=== PATIENT | female | born 1980 | race American Indian/Alaskan Native ===

== ENCOUNTER 2016-09-29 14:32 | Emergency (ER) | payer OTHER, MEDICAID ==
[2016-09-29] MEDS ORDERED: NORCO 5/325 PO ONE (16:08)
[2016-09-29] MEDS ORDERED: NORCO 5/325 ONE (16:08)
[2016-09-29] MEDS ORDERED: MORPHINE IV ONE (16:51)
[2016-09-29] MEDS ORDERED: ZOFRAN IV ONE (16:51)
[2016-09-29] MEDS ORDERED: TORADOL IV ONE (16:51)
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
[2016-09-29 19:43] VITALS: BP 109/78
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
== END 2016-09-29 19:43 | disposition home or self-care (01) ==
LOC: ED 14:32
DX: S09.90XA Unspecified injury of head, initial encounter (principal); S46.912A Strain of unspecified muscle, fascia and tendon at shoulder and upper arm level, left arm, initial encounter; S76.012A Strain of muscle, fascia and tendon of left hip, initial encounter; S16.1XXA Strain of muscle, fascia and tendon at neck level, initial encounter; Z88.8 Allergy status to other drugs, medicaments and biological substances; V49.49XA Driver injured in collision with other motor vehicles in traffic accident, initial encounter; Y93.89 Activity, other specified; Y99.8 Other external cause status; Y92.89 Other specified places as the place of occurrence of the external cause
CPT/HCPCS: 70450; 72125; 81025; J1885; J2270; J2405